=== PATIENT | female | born 1960 | race Caucasian/White ===

== ENCOUNTER → 2021-12-06 | Day surgery (SDC) | payer BC ==
[~2021-12-06] MED LIST: Ketamine 200 MG/20 ML MDV ONE; Lidocaine 2% 20 ML MDV ONE; Propofol 200 MG/20 ML SDV ONE; fentaNYL 50 MCG/ML SDV ONE
[2021-12-06] MEDS: Lactated Ringers 1,000 ML IV SCH (08:32)
== END ==
LOC: CC.SDS 07:57
PROVIDERS: ATTEND Family Medicine
DX: R19.5 Other fecal abnormalities (principal); K21.9 Gastro-esophageal reflux disease without esophagitis; K29.50 Unspecified chronic gastritis without bleeding; K64.8 Other hemorrhoids; K64.9 Unspecified hemorrhoids; E03.9 Hypothyroidism, unspecified; E78.5 Hyperlipidemia, unspecified; Z88.8 Allergy status to other drugs, medicaments and biological substances; Z91.040 Latex allergy status; Z79.899 Other long term (current) drug therapy
CPT/HCPCS: 00811; 36415; 85610; 87081; J1642; J2704; J3010; J7120